=== PATIENT | male | born 1975 | race Caucasian/White ===

== ENCOUNTER 2016-04-10 21:19 | Inpatient (IN) | payer SELFPAY ==
--- NOTE | ~2016-04-10 | DS ---
Discharge Summary [place] [address] [facility] [place]. [address] NAME: EMANUEL US : 79 STATUS : DIS IN PAT#: [id number] AGE: 40 ADM/REG DATE : 04/10/16 MR#: [id number] REPORT SERV DATE: 04/13/16 DICTATED BY: ROHINI ALVAREZ DATE: 04/12/16 REPORT STATUS : Draft TRANSCRIBED BY: MODL DATE: 04/12/16 ADMISSION DATE: 04/10/2016 DISCHARGE DATE: 04/12/2016 CHIEF COMPLAINT: Abdominal pain. DISCHARGE DIAGNOSIS: Acute on chronic pancreatitis. HISTORY OF PRESENT ILLNESS: Please see full H and P by Dr. Riccardo Lugo for details regarding initial presentation. HOSPITAL COURSE: Acute on chronic pancreatitis. The patient was admitted to the hospital, treated with IV fluids aggressively as well as pain control. He is tolerating clear liquid diet. At this point, he wishes to go home, as he says he does not have insurance and does not wish to pay for another night in the hospital. We have counseled him on alcohol cessation. He should avoid this at all cost in addition to smoking cessation. FOLLOW UP: The patient will follow up as outpatient with GI doctor at [place]. Time spent on this discharge, less than 30 minutes. DANUTA/GINA Rohini Alvarez MD / [id number] CC: Rohini Alvarez MD
--- NOTE | ~2016-04-10 | HP ---
History And Physical [address] [place]. [address] NAME: EMANUEL US : 79 STATUS : ADM IN [facility]#: [id number] AGE: 40 ADM/REG DATE : 04/10/16 MR#: [id number] REPORT SERV DATE: 04/11/16 DICTATED BY: RICCARDO LUGO DATE: 04/10/16 REPORT STATUS : Draft TRANSCRIBED BY: MODL DATE: 04/10/16 DATE OF ADMISSION: 04/10/2016 CHIEF COMPLAINT: Abdominal pain. HISTORY OF PRESENT ILLNESS: This is a 40-year-old gentleman with history of alcoholism and chronic pancreatitis, presenting with an abdominal pain. The patient reports that with his chronic pancreatitis, he has abdominal pains chronically at baseline, but he had acute worsening of abdominal pain since this morning. The patient does have quite frequent flare- ups every couple of weeks or so and this episode was unusually worse. The patient thus came to the ER for further evaluation and care. In the ER, the patient was found to be afebrile and hemodynamically stable. Initial lab evaluation revealed benign electrolytes, LFTs, and CBC, but lipase was quite elevated at 8472. CT of the abdomen and pelvis also confirmed severe pancreatitis at the head as well as severe duodenitis. Internal Medicine consultation was thus requested for admission of the patient for further evaluation and care. The patient first developed acute pancreatitis about a year to year and a half ago and unfortunately, it progressed to chronic pancreatitis from there. The patient apparently has pancreatic cysts. The patient follows with Dr. Gonzalez at [facility] and he is currently on imaging surveillance. In terms of alcohol consumption, the patient has been an alcoholic in the past and although he reports that he has stopped drinking. When asked him when his last drink was, he reluctantly admitted that he had a few drinks on Friday which is just three days ago. REVIEW OF SYSTEMS: The patient denies any fevers or chills. Also, 14-point review of systems reviewed and negative other than mentioned above. MEDICATIONS: 1. Clonidine 0.1 mg p.o. b.i.d. 2. Lisinopril 30 mg p.o. at bedtime. 3. Centrum one tablet p.o. daily. 4. Vitamin B12 1500 mcg p.o. daily. 5. Vitamin B1 500 mg p.o. daily. ALLERGIES: NKDA. PAST MEDICAL HISTORY: 1. Chronic pancreatitis with apparent pseudocysts. The patient follows with Dr. Gonzalez at [facility]. 2. Hypertension. 3. Smoking. 4. Alcohol abuse and dependence with ongoing abuse. History And Physical [address] [address] NAME: EMANUEL US : 79 STATUS : ADM IN [facility]#: [id number] AGE: 40 ADM/REG DATE : 04/10/16 MR#: [id number] REPORT SERV DATE: 04/11/16 DICTATED BY: RICCARDO LUGO DATE: 04/10/16 REPORT STATUS : Draft TRANSCRIBED BY: GINA DATE: 04/10/16 PAST SURGICAL HISTORY: Negative. FAMILY HISTORY: 1. Hypertension. 2. Diabetes. SOCIAL HISTORY: The patient smokes about one pack per day of cigarettes on daily basis. The patient reports that he does not really drink anymore, but his last drink was Friday. The patient does not use any other illicit drugs. The patient lives at home with his . The patient is accompanied by his mother here in the ER. PHYSICAL EXAMINATION: VITAL SIGNS: Temperature 98.2, blood pressure 136/72, pulse 96, respiratory rate is 16, saturating 99% on room air. GENERAL: The patient is alert and oriented x3 with no focal neurologic deficits. The patient is awake, does not appear to be in acute distress and he is cooperative. NECK: No JVD. No lymphadenopathy. Normal thyroid. CHEST: No midline scar and no tenderness to palpation. LUNGS: Clear to auscultation bilaterally with normal respiratory effort on room air. CARDIOVASCULAR: Regular rate and rhythm with no murmurs, rubs, or gallops, and PMI is nondisplaced. ABDOMEN: Soft, nontender with active bowel sounds and no organomegaly. EXTREMITIES: No edema. Normal distal pulses and no calf tenderness. SKIN: Clean, dry, warm, and intact. LABORATORY DATA: Sodium is 140, potassium 4.1, chloride 101, BUN 5, creatinine 0.68, glucose 90, calcium 8.9. LFTs are benign. Lipase 8472. White blood cell count is 11.0, hemoglobin 17.2, platelets 271. CT of the abdomen and pelvis revealed a severe pancreatitis at the head along with severe duodenitis. ASSESSMENT: This is a 40-year-old gentleman with history of chronic pancreatitis, presenting with acute on chronic pancreatitis. 1. Acute on chronic pancreatitis. 2. Hypertension. 3. Smoking. 4. Continued alcohol abuse. PLAN: My plan is to admit the patient under telemetry monitoring. The patient will be kept n.p.o. and he will be given IV fluid resuscitation. The patient will also be given supportive care with antiemetics and analgesia. The patient was extensively counseled against continuing alcohol consumption. The patient was also given smoking cessation counseling. Otherwise, in's and out's will be closely monitored and I will also follow serial labs. Standard DVT prophylaxis. The patient is full code at this time. [facility] History And Physical [address] [address] NAME: EMANUEL US : 79 STATUS : ADM IN PAT#: [id number] AGE: 40 ADM/REG DATE : 04/10/16 MR#: [id number] REPORT SERV DATE: 04/11/16 DICTATED BY: RICCARDO LUGO DATE: 04/10/16 REPORT STATUS : Draft TRANSCRIBED BY: GINA DATE: 04/10/16 Riccardo Lugo MD / [id number] CC: Riccardo Lugo MD
[2016-04-10 20:45] LABS: BASOPHILS 0.2 %; BASOPHILS ABSOLUTE 0.02 10/3/uL (0.0-0.16); EOSINOPHILS 0.3 %; EOSINOPHILS ABSOLUTE 0.03 10/3/uL (0.0-0.53); ER CBC TAT 0 Hrs 14 Mins; HEMATOCRIT 48.5 % (40.0-51.0); HEMOGLOBIN 17.2 g/dL (13.6-17.8); IMMATURE GRANULOCYTES 0.2 %; IMMATURE GRANULOCYTES ABSOLUTE 0.02 10/3/uL (0.0-0.11); LYMPHOCYTES 11.5 %; LYMPHOCYTES ABSOLUTE 1.27 10/3/uL (0.67-4.30); MEAN CORPUS HGB CONC 35.5 g/dL (32.0-36.0); MEAN CORPUSCULAR HEMOGLOB 35.3 pg (26.0-34.0); MEAN CORPUSCULAR VOLUME 99.6 fL (80-100); MEAN PLATELET VOLUME 9.9 fL (9.2-13.0); MONOCYTES 7.1 %; MONOCYTES ABSOLUTE 0.78 10/3/uL (0.21-1.20); NEUTROPHILS 80.7 %; NEUTROPHILS ABSOLUTE 8.88 10/3/uL (2.02-8.40); PLATELET COUNT 271 10/3/uL (150-400); RBC DISTRIBUTION WIDTH 12.5 % (12.0-16.0); RED CELL COUNT 4.87 10/6/uL (4.7-6.1)
[2016-04-10 20:48] LABS: MANUAL DIFF NO %
[2016-04-10 20:51] LABS: A/G RATIO 0.6 (0.7-1.9); ALBUMIN 2.9 G/DL (3.5-5.0); ALKALINE PHOSPHATASE 90 U/L (45-117); BUN (BLOOD UREA NITROGEN) 5 MG/DL (6-23); CALCIUM, SERUM 8.9 MG/DL (8.5-10.4); CHLORIDE, SERUM 101 MMOL/L (96-112); CO2 (CARBON DIOXIDE) 24 MMOL/L (24-34); CREATININE 0.68 MG/DL (0.70-1.30); GFR AFRICAN AMERICAN 140 ML/MIN (>=60); GFR NON AFRICAN AMERICAN 121 ML/MIN (>=60); GLOBULIN 4.7 G/DL (2.5-4.1); GLUCOSE, SERUM 90 MG/DL (60-99); POTASSIUM, SERUM 4.1 MMOL/L (3.5-5.3); SGOT(AST) 24 U/L (5-40); SGPT(ALT) 17 U/L (5-65); SODIUM, SERUM 140 MMOL/L (135-148); TOTAL BILIRUBIN 0.4 MG/DL (0-1.2); TOTAL PROTEIN 7.6 G/DL (6.0-8.5)
[2016-04-10] MEDS ORDERED: ZESTRIL30 MG PO (21:20)
[2016-04-10] MEDS ORDERED: CAT1 PO (21:20)
[2016-04-10] MEDS ORDERED: CENTRUM PO (21:20)
[2016-04-10] MEDS ORDERED: VITAMIN B-1500 MG PO (21:21)
[2016-04-10] MEDS ORDERED: B12250T PO (21:21)
[2016-04-11 07:18] LABS: BASOPHILS 0.5 %; BASOPHILS ABSOLUTE 0.04 10/3/uL (0.0-0.16); EOSINOPHILS 1.8 %; EOSINOPHILS ABSOLUTE 0.15 10/3/uL (0.0-0.53); IMMATURE GRANULOCYTES 0.2 %; IMMATURE GRANULOCYTES ABSOLUTE 0.02 10/3/uL (0.0-0.11); LYMPHOCYTES 21.6 %; MEAN CORPUS HGB CONC 34.6 g/dL (32.0-36.0); MEAN CORPUSCULAR HEMOGLOB 34.4 pg (26.0-34.0); MEAN CORPUSCULAR VOLUME 99.2 fL (80-100); MEAN PLATELET VOLUME 9.6 fL (9.2-13.0); MONOCYTES 11.7 %; MONOCYTES ABSOLUTE 0.98 10/3/uL (0.21-1.20); NEUTROPHILS 64.2 %; NEUTROPHILS ABSOLUTE 5.36 10/3/uL (2.02-8.40); RBC DISTRIBUTION WIDTH 12.6 % (12.0-16.0); RED CELL COUNT 3.93 10/6/uL (4.7-6.1); WHITE BLOOD CELLS 8.4 10/3/uL (4.5-10.5)
[2016-04-11 07:19] LABS: HEMOGLOBIN 13.5 g/dL (13.6-17.8); MANUAL DIFF NO %; PLATELET COUNT 188 10/3/uL (150-400)
[2016-04-11 07:34] LABS: A/G RATIO 0.6 (0.7-1.9); ALBUMIN 2.4 G/DL (3.5-5.0); ALKALINE PHOSPHATASE 71 U/L (45-117); BUN (BLOOD UREA NITROGEN) 6 MG/DL (6-23); CALCIUM, SERUM 7.9 MG/DL (8.5-10.4); CHLORIDE, SERUM 102 MMOL/L (96-112); CO2 (CARBON DIOXIDE) 25 MMOL/L (24-34); CREATININE 0.64 MG/DL (0.70-1.30); GFR AFRICAN AMERICAN 144 ML/MIN (>=60); GFR NON AFRICAN AMERICAN 124 ML/MIN (>=60); GLUCOSE, SERUM 81 MG/DL (60-99); POTASSIUM, SERUM 3.5 MMOL/L (3.5-5.3); SGOT(AST) 19 U/L (5-40); SGPT(ALT) 15 U/L (5-65); SODIUM, SERUM 138 MMOL/L (135-148); TOTAL BILIRUBIN 0.7 MG/DL (0-1.2); TOTAL PROTEIN 6.4 G/DL (6.0-8.5)
[2016-04-12] MEDS ORDERED: NORCO1 TA1 PO (15:12)
== END 2016-04-12 15:30 | disposition home or self-care (01) | DRG 440 ==
LOC: ER 21:19 → ER/OF 22:50 → 4EA 04-11 01:09
PROVIDERS: Hospitalist; Internal Medicine
DX: K85.90 Acute pancreatitis without necrosis or infection, unspecified (principal); I10 Essential (primary) hypertension; F17.210 Nicotine dependence, cigarettes, uncomplicated; F10.10 Alcohol abuse, uncomplicated
CPT/HCPCS: 74176; 80053; 83690; 85025; 96374; 99285; A9270-GY; C9113; J1170; J2405; J3411

== ENCOUNTER 2016-04-26 18:16 | Inpatient (IN) | payer SELFPAY ==
--- NOTE | ~2016-04-26 | DS ---
Discharge Summary [address] [place]. [address] NAME: EMANUEL US : 79 STATUS : DIS IN PAT#: [id number] AGE: 40 ADM/REG DATE : 04/26/16 MR#: [id number] REPORT SERV DATE: 04/29/16 DICTATED BY: RICCARDO PICHARDO DATE: 04/29/16 REPORT STATUS : Draft TRANSCRIBED BY: MODL DATE: 04/29/16 ADMISSION DATE: 04/26/2016 DISCHARGE DATE: 04/29/2016 DISCHARGE DIAGNOSES: 1. Acute on chronic pancreatitis. 2. Leukocytosis. 3. Alcohol abuse and dependence. 4. Smoking. 5. Hypertension. CONSULTS: None. PROCEDURES: None. HOSPITAL COURSE: This is a 40-year-old gentleman with history of alcohol abuse and dependence who has had an acute pancreatitis episodes earlier this month who was admitted again with a second episode of acute on chronic pancreatitis. For details, please refer to H and P by Dr. Umanzor. In summary, the patient was admitted and was treated supportively with generous IV fluid hydration and pain control as well as nausea control. By the second day of the hospital stay, the patient was able to slowly start tolerating clear liquid diet. The patient was able to tolerate a soft diet today, and thus, he is being discharged home with close outpatient followup instructions. The patient does follow with Dr. Gonzalez at [facility], and thus, he was encouraged to continue to follow with him. He has an appointment with him in the next two weeks. Otherwise, the patient had rather uncomplicated hospital stay. Also, for alcohol abuse and dependence as well as smoking, the patient was given lengthy and extensive counseling to encourage cessation. DISCHARGE MEDICATIONS: Three day course of Percocet otherwise no changes. DISPOSITION: Home. FOLLOWUP: Please follow up with Dr. Gonzalez at [facility] as already scheduled. A total of 25 minutes spent in coordinating this patient's discharge today. JEROD/GINA Riccardo Pichardo MD / [id number] CC: Discharge Summary [address] [place] [place]. [address] NAME: EMANUEL US : 79 STATUS : DIS IN PAT#: [id number] AGE: 40 ADM/REG DATE : 04/26/16 MR#: [id number] REPORT SERV DATE: 04/29/16 DICTATED BY: RICCARDO PICHARDO DATE: 04/29/16 REPORT STATUS : Draft TRANSCRIBED BY: MODL DATE: 04/29/16 Riccardo Pichardo MD
--- NOTE | ~2016-04-26 | HP ---
History And Physical [address] [place]. [address] NAME: EMANUEL US : 79 STATUS : ADM IN [facility]#: [id number] AGE: 40 ADM/REG DATE : 04/26/16 MR#: [id number] REPORT SERV DATE: 04/27/16 DICTATED BY: JACQUIE KATE DATE: 04/27/16 REPORT STATUS : Draft TRANSCRIBED BY: MODL DATE: 04/27/16 DATE OF ADMISSION: 04/26/2016 CHIEF COMPLAINT: A 40-year-old male with no primary care physician, now presenting with abdominal pain and evidence of acute on chronic pancreatitis. HISTORY OF PRESENT ILLNESS: The patient's history was obtained through careful interview with the patient and coupled with review of [facility] medical records. The patient states that just on the morning of admission, he began to have increasing pain reminiscent of previous pancreatitis exacerbations. He has vomited throughout the day. He describes right upper quadrant abdominal pain that radiates to the epigastric area, a "solid" and sometimes sharp quality pain, 8/10 in severity that is unremitting. His describes "crackle and pops" and loud sounds of the abdomen. A particular complaint today has been diaphoresis and severe sweating, rigors, and chills but no measured fevers. No lightheadedness. No diarrhea. No shortness of breath. No chest pain. REVIEW OF SYSTEMS: Otherwise, a 14-point review of systems was obtained and was negative. PAST MEDICAL HISTORY: 1. Pancreatitis previously induced from alcohol consumption. 2. Diabetes. 3. Hypertension. PAST SURGICAL HISTORY: Left arm fracture repair. ALLERGIES: NO KNOWN DRUG ALLERGIES. SOCIAL HISTORY: Has been a heavy alcoholic but states he has been abstinent for three weeks and his confirms this. There is a history of smoking. The patient's urine drug screen is positive for methamphetamines. He is , has two children, lives in [place], [place]. FAMILY HISTORY: Diabetes. CURRENT MEDICATIONS: Include ibuprofen p.r.n., vitamin B12, lisinopril 30 mg p.o. daily, Prilosec 20 mg p.o. daily, and vitamin B1. PHYSICAL EXAMINATION: VITAL SIGNS: Temperature 98.7, pulse 82, blood pressure 150/109, respiratory rate 15, O2 History And Physical [address] [place]. [address] NAME: EMANUEL US : 79 STATUS : ADM IN [facility]#: [id number] AGE: 40 ADM/REG DATE : 04/26/16 MR#: [id number] REPORT SERV DATE: 04/27/16 DICTATED BY: JACQUIE KATE DATE: 04/27/16 REPORT STATUS : Draft TRANSCRIBED BY: MODL DATE: 04/27/16 saturation 99% on room air. GENERAL: An ill-appearing male with evidence of describes distress secondary to abdominal pain and vomiting. HEENT: Pupils are equal, round, and reactive to light. No conjunctival pallor. No scleral icterus. Nares are patent. Oropharynx is clear of obstruction. Moist mucous membranes. NECK: Trachea midline. No thyromegaly. LYMPHS: No cervical lymphadenopathy. No supraclavicular lymphadenopathy. RESPIRATORY: Clear to auscultation in the bases. No wheezes, rales, or rhonchi. Normal respiratory effort. CARDIOVASCULAR: Regular rate and rhythm. No murmurs, rubs, or gallops. No extremity edema is appreciated. ABDOMEN: Diffusely tender by exam, nonfocal, except for what seems to be increasing right upper quadrant discomfort and guarding in that area. Nondistended. No hepatosplenomegaly. DERMATOLOGICAL: Warm and dry extremities. No pallor. No cyanosis. PSYCHIATRIC: Normal affect. Good mood. Alert and oriented x3. LABORATORY DATA: White blood count 14.6, hemoglobin 16, hematocrit 46, MCV 101.8, platelets 214, sodium 140, potassium 4.1, chloride 104, bicarb 24, BUN 5, creatinine 0.65, glucose 94, and lipase 736. Liver enzymes are within normal limits. INR 1.0. Alcohol level negative. Urine drug screen positive for amphetamines and opiates. STUDIES: 1. CT scan of the abdomen was reported as showing acute on chronic pancreatitis. 2. EKG, by my own evaluation, shows sinus rhythm, no major abnormalities. ASSESSMENT AND PLAN: 1. Acute on chronic pancreatitis, place on IV narcotic pain management and IV fluids. Hold Advil. Hold lisinopril. Previously induced by alcohol but has been abstinent for about three weeks now, possibly induced by methamphetamine use? Check ultrasound of the gallbladder as pain is really localizing to the right upper quadrant. 2. Leukocytosis with rigors. I would like to cover with Levaquin and Flagyl at least overnight and re-evaluate. Check procalcitonin. KPL/MODL Jacquie Kate M.D. / [id number] CC: Riccardo Lugo MD
[~2016-04-26 18:16] MED LIST: B12250T PO; CAT1 PO; CENTRUM PO; NORCO1 TA1 PO; VITAMIN B-1500 MG PO; ZESTRIL30 MG PO
[2016-04-26 19:20] LABS: BASOPHILS 0.2 %; BASOPHILS ABSOLUTE 0.03 10/3/uL (0.0-0.16); EOSINOPHILS 0.1 %; EOSINOPHILS ABSOLUTE 0.02 10/3/uL (0.0-0.53); IMMATURE GRANULOCYTES 0.3 %; IMMATURE GRANULOCYTES ABSOLUTE 0.04 10/3/uL (0.0-0.11); LYMPHOCYTES 10.1 %; LYMPHOCYTES ABSOLUTE 1.47 10/3/uL (0.67-4.30); MEAN CORPUS HGB CONC 35.7 g/dL (32.0-36.0); MEAN CORPUSCULAR HEMOGLOB 36.4 pg (26.0-34.0); MEAN CORPUSCULAR VOLUME 101.8 fL (80-100); MONOCYTES 8.8 %; MONOCYTES ABSOLUTE 1.28 10/3/uL (0.21-1.20); NEUTROPHILS 80.5 %; NEUTROPHILS ABSOLUTE 11.75 10/3/uL (2.02-8.40); PLATELET COUNT 214 10/3/uL (150-400); RBC DISTRIBUTION WIDTH 12.7 % (12.0-16.0); RED CELL COUNT 4.48 10/6/uL (4.7-6.1)
[2016-04-26 19:22] LABS: ER CBC TAT 0 Hrs 12 Mins; HEMATOCRIT 45.6 % (40.0-51.0); HEMOGLOBIN 16.3 g/dL (13.6-17.8); MANUAL DIFF NO %; WHITE BLOOD CELLS 14.6 10/3/uL (4.5-10.5)
[2016-04-26 19:25] LABS: PARTIAL THROMBO TIME 28.7 SEC (22.5-37.2)
[2016-04-26 19:42] LABS: ALBUMIN 2.8 G/DL (3.5-5.0); BUN (BLOOD UREA NITROGEN) 5 MG/DL (6-23); CALCIUM, SERUM 8.6 MG/DL (8.5-10.4); CHLORIDE, SERUM 104 MMOL/L (96-112); CO2 (CARBON DIOXIDE) 24 MMOL/L (24-34); CREATININE 0.65 MG/DL (0.70-1.30); DIRECT BILIRUBIN 0.1 MG/DL (0.0-0.4); GFR AFRICAN AMERICAN 143 ML/MIN (>=60); GFR NON AFRICAN AMERICAN 123 ML/MIN (>=60); GLUCOSE, SERUM 94 MG/DL (60-99); INDIRECT BILIRUBIN(NOT ORDER) 0.3 MG/DL (0.1-0.9); POTASSIUM, SERUM 4.1 MMOL/L (3.5-5.3); SGOT(AST) 35 U/L (5-40); SGPT(ALT) 19 U/L (5-65); SODIUM, SERUM 140 MMOL/L (135-148); TOTAL BILIRUBIN 0.4 MG/DL (0-1.2); TOTAL PROTEIN 7.5 G/DL (6.0-8.5); TROPONIN I <0.02 NG/ML (<0.05)
[2016-04-26 19:43] LABS: ACETAMINOPHEN LEVEL (TYLENOL) < 2.0 MCG/ML (10.0-20.0); ALCOHOL < 10 MG/DL (0); ALKALINE PHOSPHATASE 92 U/L (45-117); CHEST PAIN PROFILE TAT 0 Hrs 32 Mins; SALICYLATE < 1.7 MG/DL (-)
[2016-04-26 19:48] LABS: BARBITURATES (NOT ORDERED NEG (NEG); BENZODIAZEPINES (NOT ORD) NEG (NEG); CANNABINOIDS (THC) NEG (NEG); COCAINE (NOT ORDERED) NEG (NEG); PHENCYCLIDINE(PCP) NEG (NEG); TRICYCLICS NEG (NEG)
[2016-04-26 20:09] LABS: AMPHETAMINES (NOT ORD) POS (NEG); OPIATES POS (NEG)
[2016-04-26] MEDS ORDERED: ADVIL PO (23:02)
[2016-04-26] MEDS ORDERED: PRILO PO (23:02)
[2016-04-27 08:30] LABS: BASOPHILS 0.2 %; BASOPHILS ABSOLUTE 0.02 10/3/uL (0.0-0.16); EOSINOPHILS 0 %; HEMATOCRIT 44.5 % (40.0-51.0); HEMOGLOBIN 15.6 g/dL (13.6-17.8); IMMATURE GRANULOCYTES 0.2 %; IMMATURE GRANULOCYTES ABSOLUTE 0.03 10/3/uL (0.0-0.11); LYMPHOCYTES 13.6 %; LYMPHOCYTES ABSOLUTE 1.65 10/3/uL (0.67-4.30); MEAN CORPUS HGB CONC 35.1 g/dL (32.0-36.0); MEAN CORPUSCULAR HEMOGLOB 35.9 pg (26.0-34.0); MEAN CORPUSCULAR VOLUME 102.3 fL (80-100); MEAN PLATELET VOLUME 10.4 fL (9.2-13.0); MONOCYTES 12.1 %; MONOCYTES ABSOLUTE 1.47 10/3/uL (0.21-1.20); NEUTROPHILS 73.9 %; NEUTROPHILS ABSOLUTE 8.94 10/3/uL (2.02-8.40); PLATELET COUNT 207 10/3/uL (150-400); RBC DISTRIBUTION WIDTH 12.7 % (12.0-16.0); RED CELL COUNT 4.35 10/6/uL (4.7-6.1); WHITE BLOOD CELLS 12.1 10/3/uL (4.5-10.5)
[2016-04-27 08:31] LABS: MANUAL DIFF NO %
[2016-04-27 08:38] LABS: PARTIAL THROMBO TIME 29.3 SEC (22.5-37.2); PROTIME (NOT ORD) 13.1 SEC (12.0-14.5)
[2016-04-27 08:57] LABS: A/G RATIO 0.6 (0.7-1.9); ALBUMIN 2.6 G/DL (3.5-5.0); ALKALINE PHOSPHATASE 85 U/L (45-117); BUN (BLOOD UREA NITROGEN) 6 MG/DL (6-23); CALCIUM, SERUM 8.5 MG/DL (8.5-10.4); CHLORIDE, SERUM 104 MMOL/L (96-112); CO2 (CARBON DIOXIDE) 27 MMOL/L (24-34); CREATININE 0.75 MG/DL (0.70-1.30); GFR AFRICAN AMERICAN 135 ML/MIN (>=60); GFR NON AFRICAN AMERICAN 116 ML/MIN (>=60); GLOBULIN 4.5 G/DL (2.5-4.1); GLUCOSE, SERUM 104 MG/DL (60-99); POTASSIUM, SERUM 4.8 MMOL/L (3.5-5.3); SGOT(AST) 23 U/L (5-40); SGPT(ALT) 15 U/L (5-65); SODIUM, SERUM 141 MMOL/L (135-148); TOTAL BILIRUBIN 0.6 MG/DL (0-1.2); TOTAL PROTEIN 7.1 G/DL (6.0-8.5)
[2016-04-27 09:25] LABS: PROCALCITONIN <0.05 ng/mL (<0.5)
[2016-04-29 06:50] LABS: BASOPHILS 0.1 %; BASOPHILS ABSOLUTE 0.01 10/3/uL (0.0-0.16); EOSINOPHILS 0.7 %; EOSINOPHILS ABSOLUTE 0.07 10/3/uL (0.0-0.53); HEMOGLOBIN 13.5 g/dL (13.6-17.8); IMMATURE GRANULOCYTES 0.3 %; IMMATURE GRANULOCYTES ABSOLUTE 0.03 10/3/uL (0.0-0.11); LYMPHOCYTES 16.1 %; LYMPHOCYTES ABSOLUTE 1.64 10/3/uL (0.67-4.30); MEAN CORPUS HGB CONC 35.2 g/dL (32.0-36.0); MEAN CORPUSCULAR HEMOGLOB 36.1 pg (26.0-34.0); MEAN CORPUSCULAR VOLUME 102.4 fL (80-100); MEAN PLATELET VOLUME 10.4 fL (9.2-13.0); MONOCYTES 13.1 %; MONOCYTES ABSOLUTE 1.34 10/3/uL (0.21-1.20); NEUTROPHILS 69.7 %; NEUTROPHILS ABSOLUTE 7.11 10/3/uL (2.02-8.40); PLATELET COUNT 168 10/3/uL (150-400); RBC DISTRIBUTION WIDTH 12.1 % (12.0-16.0); RED CELL COUNT 3.74 10/6/uL (4.7-6.1); WHITE BLOOD CELLS 10.2 10/3/uL (4.5-10.5)
[2016-04-29 06:52] LABS: HEMATOCRIT 38.3 % (40.0-51.0); MANUAL DIFF NO %
[2016-04-29 06:59] LABS: BUN (BLOOD UREA NITROGEN) 4 MG/DL (6-23); CALCIUM, SERUM 7.9 MG/DL (8.5-10.4); CHLORIDE, SERUM 104 MMOL/L (96-112); CO2 (CARBON DIOXIDE) 26 MMOL/L (24-34); CREATININE 0.53 MG/DL (0.70-1.30); GFR AFRICAN AMERICAN 156 ML/MIN (>=60); GFR NON AFRICAN AMERICAN 134 ML/MIN (>=60); GLUCOSE, SERUM 84 MG/DL (60-99); POTASSIUM, SERUM 3.5 MMOL/L (3.5-5.3); SODIUM, SERUM 138 MMOL/L (135-148)
[2016-04-29] MEDS ORDERED: PCET PO (12:39)
== END 2016-04-29 13:14 | disposition home or self-care (01) | DRG 440 ==
LOC: ER 18:16 → 4SO 23:23
PROVIDERS: Emergency Medicine; Hospitalist; Internal Medicine
DX: K85.90 Acute pancreatitis without necrosis or infection, unspecified (principal); I10 Essential (primary) hypertension; K86.1 Other chronic pancreatitis; E11.9 Type 2 diabetes mellitus without complications; F10.21 Alcohol dependence, in remission; F17.210 Nicotine dependence, cigarettes, uncomplicated; F15.10 Other stimulant abuse, uncomplicated; F10.20 Alcohol dependence, uncomplicated
CPT/HCPCS: 74022; 74176; 76705; 80048; 80053; 80076; 80305; 80307; 82150; 82962; 83690; 83735; 84145; 84443; 84484; 85025; 85610; 85730; 93005; 99285; A9270-GY; J1170; J1956; J2405; J2800

== ENCOUNTER 2016-05-17 19:34 | Emergency (ER) | payer SELFPAY ==
[~2016-05-17 19:34] MED LIST changes: +ADVIL PO; +PCET PO; +PRILO PO
[2016-05-17 19:50] LABS: BASOPHILS 0.1 %; BASOPHILS ABSOLUTE 0.02 10/3/uL (0.0-0.16); EOSINOPHILS 0.2 %; EOSINOPHILS ABSOLUTE 0.03 10/3/uL (0.0-0.53); IMMATURE GRANULOCYTES 0.4 %; IMMATURE GRANULOCYTES ABSOLUTE 0.06 10/3/uL (0.0-0.11); LYMPHOCYTES 9.8 %; MEAN CORPUS HGB CONC 35.7 g/dL (32.0-36.0); MEAN CORPUSCULAR HEMOGLOB 36.6 pg (26.0-34.0); MEAN CORPUSCULAR VOLUME 102.6 fL (80-100); MEAN PLATELET VOLUME 10.1 fL (9.2-13.0); MONOCYTES 8.1 %; MONOCYTES ABSOLUTE 1.24 10/3/uL (0.21-1.20); NEUTROPHILS 81.4 %; NEUTROPHILS ABSOLUTE 12.48 10/3/uL (2.02-8.40); RBC DISTRIBUTION WIDTH 12.3 % (12.0-16.0)
[2016-05-17 19:52] LABS: ER CBC TAT 0 Hrs 08 Mins; HEMATOCRIT 48.2 % (40.0-51.0); HEMOGLOBIN 17.2 g/dL (13.6-17.8); MANUAL DIFF NO %; PLATELET COUNT 273 10/3/uL (150-400); WHITE BLOOD CELLS 15.3 10/3/uL (4.5-10.5)
[2016-05-17 20:04] LABS: A/G RATIO 0.6 (0.7-1.9); ALBUMIN 3.2 G/DL (3.5-5.0); ALKALINE PHOSPHATASE 96 U/L (45-117); BUN (BLOOD UREA NITROGEN) 6 MG/DL (6-23); CALCIUM, SERUM 8.9 MG/DL (8.5-10.4); CHLORIDE, SERUM 100 MMOL/L (96-112); CO2 (CARBON DIOXIDE) 29 MMOL/L (24-34); CREATININE 0.86 MG/DL (0.70-1.30); GFR AFRICAN AMERICAN 127 ML/MIN (>=60); GFR NON AFRICAN AMERICAN 110 ML/MIN (>=60); GLUCOSE, SERUM 96 MG/DL (60-99); POTASSIUM, SERUM 4.3 MMOL/L (3.5-5.3); SGOT(AST) 20 U/L (5-40); SGPT(ALT) 13 U/L (5-65); SODIUM, SERUM 141 MMOL/L (135-148); TOTAL BILIRUBIN 0.6 MG/DL (0-1.2); TOTAL PROTEIN 8.2 G/DL (6.0-8.5)
== END 2016-05-17 22:58 | disposition home or self-care (01) ==
LOC: ER 19:34
PROVIDERS: Physician Assistant
DX: K85.90 Acute pancreatitis without necrosis or infection, unspecified (principal); D72.829 Elevated white blood cell count, unspecified; I10 Essential (primary) hypertension; E11.9 Type 2 diabetes mellitus without complications; F17.200 Nicotine dependence, unspecified, uncomplicated; Z79.899 Other long term (current) drug therapy
CPT/HCPCS: 74176; 80053; 81001; 83690; 85025; 96374; 96375; 96376; 99284; A9270-GY; J2405

== ENCOUNTER 2016-06-12 03:04 | Inpatient (IN) | payer SELFPAY ==
--- NOTE | ~2016-06-12 | DS ---
Discharge Summary [facility] [address] [place]. [address] NAME: EMANUEL US : 79 STATUS : DIS IN PAT#: [id number] AGE: 40 ADM/REG DATE : 06/12/16 MR#: [id number] REPORT SERV DATE: 06/14/16 DICTATED BY: ANGY CAAL DATE: 06/13/16 REPORT STATUS : Draft TRANSCRIBED BY: MODL DATE: 06/13/16 ADMISSION DATE: 06/12/2016 DISCHARGE DATE: 06/13/2016 HOSPITAL COURSE: This is a 40-year-old male with known history of alcoholism, chronic pancreatitis, takes pancreatic enzyme replacement therapy as well as a history of hypertension, on clonidine, possibly is on clonidine for also withdrawal issues as well as having a known history of hyperutilization and multiple admissions for acute on chronic pancreatitis, chronic pain, and smoking history. The patient came in with "stated abstinence." However, his alcohol level was 0.144, had a lipasemia of 3061, and amylase of 159. Apparently was in an out of [facility] recently, did multiple CTs on him and stated that the patient had not drank to the admitting doctor, but with his blood alcohol level being high, the patient stated that he may have had a drink slipped to him, then a day later he told me that in truth he had an alcoholic drink, 32 ounce, 3 days prior to admission. Does not know how it could be allowing his blood alcohol level to be persistently elevated at 0.144. The patient was placed on high IV fluid rate and has done clinically much better. His lipasemia has resolved, it is now 384 from 3061. Hepatitis serologies were negative. He is just positive for opiates in his urine drug screen, likely etiology of acute on chronic alcoholic pancreatitis is alcohol again. I had a samara discussion with the patient at least 2 times. The patient states he is not going to drink alcohol, he promises, knowing the risk of possible with Librium and Ativan if he drinks again. As a result, we will try to have the patient follow up with psychiatrist and possible [facility] or AA and will have to take the patient at his word as he tells me he will not drink alcohol, will have a short duration of Librium and Ativan to reduce his risk of recidivation, and if in deed he does recidivate, as a result, the patient wants to go home, he does not want any further CT imaging. He has had CTs at [facility], does not want any further workup or stay in the hospital, just wants go home. DISCHARGE MEDICATIONS: Librium 10 p.o. t.i.d. for two days, then Librium 10 p.o. b.i.d. for two days, then Librium 5 mg p.o. b.i.d. for two days and stop Librium. Do Ativan 1 mg p.o. q.4 h. p.r.n. alcohol withdrawal, nicotine transdermal patch 14 mg patch daily, clonidine 0.1 p.o. b.i.d., we would titrate that down. Wean that off as an outpatient. Zofran 4 p.o. q.4 h. p.r.n., hydrocodone 5 p.o. q.4 h. p.r.n., would not use any Tylenol given his risks of alcoholism. Follow Psychiatry in less than 3 weeks for addiction. Discharge to home if he tolerates full liquids. manager decision support for alcohol rehab program option AA, etc., as outpatient for followup less than one week. Follow up PCP less than two weeks. Advance diet to full liquids if tolerates discharge. Would also give this patient a multivitamin one tablet p.o. daily, to get over the counter. CONSULTS: None. PROCEDURES: None. DISCHARGE DIAGNOSES: Acute on chronic alcoholic pancreatitis due to alcoholic recidivation. The patient promises he will not drink again. We will have him follow up with AA versus Discharge Summary [address] [place]. [address] NAME: EMANUEL US : 79 STATUS : DIS IN PAT#: [id number] AGE: 40 ADM/REG DATE : 06/12/16 MR#: [id number] REPORT SERV DATE: 06/14/16 DICTATED BY: ANGY CAAL DATE: 06/13/16 REPORT STATUS : Draft TRANSCRIBED BY: MODL DATE: 06/13/16 [facility] and Psychiatry to ensure that occurs. Hypertension and chronic pancreatitis. All questions were answered, it took well over 30 minutes to do. WST/MODL Angy Caal DO / [id number] CC: Angy Caal DO UNKNOWN
--- NOTE | ~2016-06-12 | HP ---
History And Physical [id number] [place]. [address] NAME: EMANUEL HILTON : 79 STATUS : ADM IN PAT#: [id number] AGE: 40 ADM/REG DATE : 06/12/16 MR#: [id number] REPORT SERV DATE: 06/12/16 DICTATED BY: ANAYELI CONTRERAS DATE: 06/12/16 REPORT STATUS : Draft TRANSCRIBED BY: MODL DATE: 06/12/16 DATE OF ADMISSION: 06/12/2016 POINT OF ENTRY: [facility] Emergency Department. PRIMARY CARE PHYSICIAN: Verónica Nicolas of [facility]. PRIMARY TOBACCO DRYING MACHINE OPERATOR: Dr. Gonzalez of [facility]. CHIEF COMPLAINT: Abdominal pain, nausea, vomiting. HISTORY OF PRESENT ILLNESS: Mr. Hilton is a 40-year-old, gentleman with history of alcoholism as well as chronic pancreatitis who presents to the emergency room today with report of acute onset of diffuse abdominal pain with associated nausea and vomiting. The patient has been admitted twice to our Hospitalist Service in April for acute on chronic pancreatitis. At that time, he did admit to our admitting physicians that he has had occasional drinks of alcohol despite stating that he has been abstinent. The patient states that since being admitted to our service in late April he has since been admitted to [facility] as recently as last week for continued issues with acute on chronic pancreatitis. The patient states he has received extensive evaluation and workup by patient's primary solution architect, Dr. Gonzalez including MRI of the abdomen. Beginning at approximately 0900 hours Friday, he started to develop right lower quadrant abdominal pain with radiation to the back as well as epigastrium, described as sharp and stabbing in nature with associated nausea and vomiting. The patient absolutely denies any alcohol intake for the past year or two. When confronted with his previous statements to other admitting physicians, he does admit that he did have a few drinks of alcohol prior to his first admission in April but has not had any alcohol since then and adamantly denies any alcohol intake in the last day or two. Initial evaluation in the emergency department notable for vital signs for tachycardia with rates in the 120s to 130s. Lipase is elevated at 3061. Amylase is elevated at 159. Remainder of his labs otherwise unremarkable. Urine drug screen is positive for opiates. Alcohol level was positive with level of 144. The patient was started on IV fluids, antiemetics, and pain control and then admitted to the Hospitalist Service. REVIEW OF SYSTEMS: Comprehensive review of system otherwise negative unless listed in history of present illness. PREVIOUS MEDICAL HISTORY: 1. Chronic pancreatitis with multiple admissions for acute on chronic pancreatitis. 2. Chronic alcoholism with stated abstinence. History And Physical [address] [address] NAME: EMANUEL HILTON : 79 STATUS : ADM IN PAT#: [id number] AGE: 40 ADM/REG DATE : 06/12/16 MR#: [id number] REPORT SERV DATE: 06/12/16 DICTATED BY: ANAYELI CONTRERAS DATE: 06/12/16 REPORT STATUS : Draft TRANSCRIBED BY: GINA DATE: 06/12/16 3. Hypertension. SURGICAL HISTORY: Left forearm open reduction and internal fixation. ALLERGIES: NO KNOWN DRUG ALLERGIES. HOME MEDICATIONS: 1. Clonidine 0.1 mg daily. 2. Endocet 7.5/325 one tab q.4 hours p.r.n. 3. Phenergan 25 mg frequency unknown. 4. Pancreatic enzymes [id number] t.i.d. with meals. 5. Liverite 2 tabs t.i.d. with meals. SOCIAL HISTORY: He smokes about a half pack per day. Alcohol, denies any alcohol intake despite being confronted with his alcohol level here. Denies illicit's. FAMILY MEDICAL HISTORY: Mother is healthy. Father with hypertension. He is an only child. LABS AND IMAGIN. White count 9.3, hemoglobin 17.4, hematocrit 49.4, and platelet count 333. 2. Sodium is 143, potassium 3.7, chloride 107, carbon dioxide 25, BUN 4, creatinine 0.74, glucose is 106, calcium is 8.9, protein is 7.9, albumin is 3.2, bilirubin is 0.1, ALT is 15, AST 28, alkaline phosphatase is 82. 3. Lactic acid is 1.9. 4. Alcohol level is 144. 5. Urinalysis: Spec gravity is 1.013, hazy with no evidence of any infection. Urine drug screen is positive for opiates. 6. Amylase 159, lipase is 3061. PHYSICAL EXAMINATION: VITAL SIGNS: Temperature 98.2 degrees Fahrenheit, pulse is 133, respirations 18, saturating 92% on room air, blood pressure 149/107. On recheck, heart rate is now 115, blood pressure 150/109. GENERAL: The patient is awake, alert, in no acute distress. Resting comfortably in bed. He is a disheveled-appearing gentleman who does smell of alcohol and tobacco smoke. HEENT: Atraumatic and normocephalic. Moist mucous membranes. Pupils are equal, round, reactive to light and accommodation. Extraocular movements intact. No scleral icterus. Does have some conjunctival injection and watery eyes. NECK: No jugular venous distention. No carotid bruits. CARDIAC: Regular rate and rhythm. No murmurs or gallops. Normal S1, S2. LUNGS: Clear to auscultation bilaterally. No wheezes, rhonchi, or crackles. ABDOMEN: Soft. Diffusely tender to palpation, but no rebound, guarding, rigidity. Hypoactive bowel sounds throughout. EXTREMITIES: Warm, perfused. No cyanosis, clubbing, or edema. SKIN: Warm and dry. PSYCH: Affect appropriate. History And Physical [address] [address] NAME: EMANUEL HILTON : 79 STATUS : ADM IN [facility]#: [id number] AGE: 40 ADM/REG DATE : 06/12/16 MR#: [id number] REPORT SERV DATE: 06/12/16 DICTATED BY: ANAYELI CONTRERAS DATE: 06/12/16 REPORT STATUS : Draft TRANSCRIBED BY: GINA DATE: 06/12/16 NEURO: Alert and oriented x3. Cranial nerves 2 through 12 grossly intact. Speech is normal. Gait not assessed. ASSESSMENT AND PLAN: Mr. Hilton is a 40-year-old gentleman with history of chronic pancreatitis secondary to alcohol abuse who presents again with acute onset of abdominal pain, nausea, vomiting, concern for acute on chronic pancreatitis, and also found to have alcohol level of 144 concerning for continued alcohol abuse as well as alcohol intoxication. PROBLEM LIST: 1. Acute on chronic pancreatitis. 2. Alcohol abuse. 3. Hypertension. 4. Tobacco abuse. PLAN: 1. Acute on chronic pancreatitis, provide supportive care with IV fluids, antiemetics, and pain control. I will hold off on further imaging at this time as he received three CT scans of the abdomen and pelvis here in the last few months. He also was at [facility] recently. So therefore, we will try to obtain records from [facility]. 2. Alcohol abuse. The patient adamantly denies any recent alcohol intake and states alcohol abstinence. However, he smells of alcohol. We will place him on alcohol withdrawal protocol as well as IV multivitamin, folate, and thiamine as well as IV fluids. Counseled the need for abstinence and cessation. 3. Hypertension. Continue patient's home medications. IV hydralazine p.r.n. for elevated blood pressure. 4. Active tobacco abuse. Nicotine replacement protocol. 5. Deep venous thrombosis prophylaxis. Lovenox subcu. 6. Code status. The patient wished to be full code. SHIVANIB/MODL Anayeli Contreras MD / [id number]
[2016-06-12 03:31] LABS: BASOPHILS 0.8 %; BASOPHILS ABSOLUTE 0.07 10/3/uL (0.0-0.16); EOSINOPHILS 1.5 %; EOSINOPHILS ABSOLUTE 0.14 10/3/uL (0.0-0.53); HEMATOCRIT 49.4 % (40.0-51.0); HEMOGLOBIN 17.4 g/dL (13.6-17.8); IMMATURE GRANULOCYTES 0.4 %; IMMATURE GRANULOCYTES ABSOLUTE 0.04 10/3/uL (0.0-0.11); LYMPHOCYTES 20.5 %; LYMPHOCYTES ABSOLUTE 1.91 10/3/uL (0.67-4.30); MEAN CORPUS HGB CONC 35.2 g/dL (32.0-36.0); MEAN CORPUSCULAR HEMOGLOB 35.4 pg (26.0-34.0); MEAN CORPUSCULAR VOLUME 100.4 fL (80-100); MEAN PLATELET VOLUME 9.6 fL (9.2-13.0); NEUTROPHILS 62.8 %; NEUTROPHILS ABSOLUTE 5.85 10/3/uL (2.02-8.40); PLATELET COUNT 333 10/3/uL (150-400); RBC DISTRIBUTION WIDTH 11.8 % (12.0-16.0); RED CELL COUNT 4.92 10/6/uL (4.7-6.1); WHITE BLOOD CELLS 9.3 10/3/uL (4.5-10.5)
[2016-06-12 03:33] LABS: ER CBC TAT 0 Hrs 05 MinsNP; MANUAL DIFF NO %
[2016-06-12 03:42] LABS: AMPHETAMINES (NOT ORD) NEG (NEG); BARBITURATES (NOT ORDERED NEG (NEG); BENZODIAZEPINES (NOT ORD) NEG (NEG); CANNABINOIDS (THC) NEG (NEG); COCAINE (NOT ORDERED) NEG (NEG); OPIATES POS (NEG); PHENCYCLIDINE(PCP) NEG (NEG); TRICYCLICS NEG (NEG)
[2016-06-12 03:47] LABS: ACETAMINOPHEN LEVEL (TYLENOL) < 2.0 MCG/ML (10.0-20.0); ALCOHOL 144 MG/DL (0); SALICYLATE 1.7 MG/DL (-)
[2016-06-12 03:48] LABS: ASCORBIC ACID (UR NOT ORDER) NEG (NEG); BILIRUBIN, URINE NEGATIVE (NEG); ER URINALYSIS TAT 0 Hrs 00 Mins; KETONE, URINE NEGATIVE (NEG); LEUKOCYTE ESTERASE(NOT OR NEG (NEG); NITRITE (URINE) NEG (NEG); WBC (NOT ORDERED) (RFLEX) 1 (0-5)
[2016-06-12 03:49] LABS: A/G RATIO 0.7 (0.7-1.9); ALBUMIN 3.2 G/DL (3.5-5.0); ALKALINE PHOSPHATASE 82 U/L (45-117); BUN (BLOOD UREA NITROGEN) 4 MG/DL (6-23); CALCIUM, SERUM 8.9 MG/DL (8.5-10.4); CHLORIDE, SERUM 107 MMOL/L (96-112); CO2 (CARBON DIOXIDE) 25 MMOL/L (24-34); CREATININE 0.74 MG/DL (0.70-1.30); GFR AFRICAN AMERICAN 136 ML/MIN (>=60); GFR NON AFRICAN AMERICAN 117 ML/MIN (>=60); GLOBULIN 4.7 G/DL (2.5-4.1); GLUCOSE, SERUM 106 MG/DL (60-99); POTASSIUM, SERUM 3.7 MMOL/L (3.5-5.3); SGOT(AST) 28 U/L (5-40); SGPT(ALT) 15 U/L (5-65); SODIUM, SERUM 143 MMOL/L (135-148); TOTAL BILIRUBIN 0.1 MG/DL (0-1.2); TOTAL PROTEIN 7.9 G/DL (6.0-8.5)
[2016-06-12 04:02] LABS: LACTATE 1.9 MMOL/L (0.3-2.4)
[2016-06-12] MEDS ORDERED: PR25 PO (04:26)
[2016-06-12] MEDS ORDERED: ENDOCET1 TA1 PO (04:26)
[2016-06-12] MEDS ORDERED: CAT1 PO (04:27)
[2016-06-12] MEDS ORDERED: PANCREATIN PO (04:30)
[2016-06-12] MEDS ORDERED: LIVER AID PO (04:31)
[2016-06-12] MEDS ORDERED: NORCO1 TA2 PO (07:12)
[2016-06-12] MEDS ORDERED: ACET500CAP PO (07:14)
[2016-06-12 13:42] LABS: HEPATITIS B SURFACE ANTIGEN NON-REACTIVE (NON-REACT)
[2016-06-12 14:10] LABS: HEPATITIS B CORE AB IGM NON-REACTIVE (NON-REAC); HEPATITIS C ANTIBODY NON-REACTIVE (NON-REACT)
[2016-06-12 14:12] LABS: HEP A ANTIBODY IGM NON-REACTIVE (NON-REACT)
[2016-06-13 05:44] LABS: HEMOGLOBIN 14.2 g/dL (13.6-17.8); MEAN CORPUS HGB CONC 33.6 g/dL (32.0-36.0); MEAN CORPUSCULAR HEMOGLOB 34.2 pg (26.0-34.0); MEAN CORPUSCULAR VOLUME 101.9 fL (80-100); MEAN PLATELET VOLUME 9.9 fL (9.2-13.0); PLATELET COUNT 242 10/3/uL (150-400); RED CELL COUNT 4.15 10/6/uL (4.7-6.1); WHITE BLOOD CELLS 8.2 10/3/uL (4.5-10.5)
[2016-06-13 05:45] LABS: HEMATOCRIT 42.3 % (40.0-51.0); MANUAL DIFF YES %
[2016-06-13 06:27] LABS: BAND NEUTROPHILS 1 %; EOSINOPHILS 1 %; EOSINOPHILS ABSOLUTE (CALC) 0.08 10/3/uL (0.0-0.53); LYMPHOCYTES 29 %; LYMPHOCYTES ABSOLUTE (CALC) 2.38 10/3/uL (0.67-4.30); MONOCYTES 1 %; MONOCYTES ABSOLUTE (CALC) 0.08 10/3/uL (0.21-1.20); NEUTROPHILS ABSOLUTE (CALC) 5.66 10/3/uL (2.02-8.40); SEGMENTED NEUTROPHIL (0) 68 %; TOTAL NUCLEATED CELLS 100
[2016-06-13 06:28] LABS: PLATELET ESTIMATE ADQ (ADEQUATE); RBC MORPHOLOGY NORM (NORMAL)
[2016-06-13 07:13] LABS: ALBUMIN 2.6 G/DL (3.5-5.0); BUN (BLOOD UREA NITROGEN) 3 MG/DL (6-23); CALCIUM, SERUM 8.9 MG/DL (8.5-10.4); GLUCOSE, SERUM 115 MG/DL (60-99); PHOSPHORUS, SERUM 3.2 MG/DL (2.5-4.5); POTASSIUM, SERUM 3.7 MMOL/L (3.5-5.3); SODIUM, SERUM 139 MMOL/L (135-148); TOTAL BILIRUBIN 0.2 MG/DL (0-1.2)
[2016-06-13 07:14] LABS: ALKALINE PHOSPHATASE 65 U/L (45-117); DIRECT BILIRUBIN < 0.1 MG/DL (0.0-0.4); INDIRECT BILIRUBIN(NOT ORDER) 0.1 MG/DL (0.1-0.9)
[2016-06-13 07:15] LABS: SGOT(AST) 22 U/L (5-40)
[2016-06-13 07:40] LABS: CHLORIDE, SERUM 103 MMOL/L (96-112); CO2 (CARBON DIOXIDE) 27 MMOL/L (24-34); CREATININE 0.69 MG/DL (0.70-1.30); GFR AFRICAN AMERICAN 140 ML/MIN (>=60); GFR NON AFRICAN AMERICAN 120 ML/MIN (>=60); SGPT(ALT) 14 U/L (5-65); TOTAL PROTEIN 6.4 G/DL (6.0-8.5)
[2016-06-13] MEDS ORDERED: L10 PO (11:25)
[2016-06-13] MEDS ORDERED: ATV1 PO (11:26)
[2016-06-13] MEDS ORDERED: HYDROCODONE PO (11:28)
[2016-06-13] MEDS ORDERED: HABIT14 TOP (11:28)
[2016-06-13] MEDS ORDERED: ZOFRAN4 PO (11:30)
[2016-06-13] MEDS ORDERED: CAT1 PO (11:30)
[2016-06-13] MEDS ORDERED: MULTIPLE VIT PO (11:37)
== END 2016-06-13 15:23 | disposition home or self-care (01) | DRG 440 ==
LOC: ER 03:04 → 1SO 06:22
PROVIDERS: Internal Medicine; Nurse Practitioner Acute Care
DX: K85.20 Alcohol induced acute pancreatitis without necrosis or infection (principal); I10 Essential (primary) hypertension; K86.0 Alcohol-induced chronic pancreatitis; Y90.6 Blood alcohol level of 120-199 mg/100 ml; E11.9 Type 2 diabetes mellitus without complications; F10.129 Alcohol abuse with intoxication, unspecified; F17.210 Nicotine dependence, cigarettes, uncomplicated; Z79.891 Long term (current) use of opiate analgesic; Z79.899 Other long term (current) drug therapy
CPT/HCPCS: 80048; 80053; 80074; 80076; 80305; 80307; 81001; 82150; 83605; 83690; 83735; 84100; 85025; 96374; 99285; A9270-GY; J1170; J2405; J2550; J3411

== ENCOUNTER 2016-07-01 19:56 | Emergency (ER) | payer SELFPAY ==
[~2016-07-01 19:56] MED LIST changes: +ACET500CAP PO; +ATV1 PO; +ENDOCET1 TA1 PO; +HABIT14 TOP; +HYDROCODONE PO; +L10 PO; +LIVER AID PO; +MULTIPLE VIT PO; +NORCO1 TA2 PO; +PANCREATIN PO; +PR25 PO; +ZOFRAN4 PO
[2016-07-01 20:00] LABS: BASOPHILS 0.2 %; BASOPHILS ABSOLUTE 0.02 10/3/uL (0.0-0.16); EOSINOPHILS 0.8 %; EOSINOPHILS ABSOLUTE 0.08 10/3/uL (0.0-0.53); ER CBC TAT 0 Hrs 05 Mins; IMMATURE GRANULOCYTES 0.2 %; IMMATURE GRANULOCYTES ABSOLUTE 0.02 10/3/uL (0.0-0.11); LYMPHOCYTES 18.2 %; LYMPHOCYTES ABSOLUTE 1.91 10/3/uL (0.67-4.30); MEAN CORPUS HGB CONC 35.2 g/dL (32.0-36.0); MEAN CORPUSCULAR HEMOGLOB 34.4 pg (26.0-34.0); MEAN PLATELET VOLUME 9.9 fL (9.2-13.0); MONOCYTES 10.1 %; MONOCYTES ABSOLUTE 1.06 10/3/uL (0.21-1.20); NEUTROPHILS 70.5 %; NEUTROPHILS ABSOLUTE 7.41 10/3/uL (2.02-8.40); PLATELET COUNT 274 10/3/uL (150-400); RBC DISTRIBUTION WIDTH 11.9 % (12.0-16.0); WHITE BLOOD CELLS 10.5 10/3/uL (4.5-10.5)
[2016-07-01 20:01] LABS: HEMATOCRIT 51.1 % (40.0-51.0); MANUAL DIFF NO %; MEAN CORPUSCULAR VOLUME 97.5 fL (80-100); RED CELL COUNT 5.24 10/6/uL (4.7-6.1)
[2016-07-01 20:15] LABS: A/G RATIO 0.7 (0.7-1.9); ALBUMIN 3.4 G/DL (3.5-5.0); ALKALINE PHOSPHATASE 102 U/L (45-117); BUN (BLOOD UREA NITROGEN) 4 MG/DL (6-23); CALCIUM, SERUM 9.5 MG/DL (8.5-10.4); CHLORIDE, SERUM 102 MMOL/L (96-112); CO2 (CARBON DIOXIDE) 28 MMOL/L (24-34); CREATININE 0.73 MG/DL (0.70-1.30); GFR AFRICAN AMERICAN 136 ML/MIN (>=60); GFR NON AFRICAN AMERICAN 118 ML/MIN (>=60); GLOBULIN 5.1 G/DL (2.5-4.1); GLUCOSE, SERUM 91 MG/DL (60-99); POTASSIUM, SERUM 4.7 MMOL/L (3.5-5.3); SGOT(AST) 30 U/L (5-40); SGPT(ALT) 17 U/L (5-65); SODIUM, SERUM 135 MMOL/L (135-148); TOTAL BILIRUBIN 0.7 MG/DL (0-1.2); TOTAL PROTEIN 8.5 G/DL (6.0-8.5)
[2016-07-01 20:52] LABS: WBC (NOT ORDERED) (RFLEX) 0 (0-5)
[2016-07-01 21:09] LABS: ASCORBIC ACID (UR NOT ORDER) NEG (NEG); BILIRUBIN, URINE NEGATIVE (NEG); KETONE, URINE 20 MG/DL (NEG); LEUKOCYTE ESTERASE(NOT OR NEG (NEG); NITRITE (URINE) NEG (NEG)
== END 2016-07-01 22:49 | disposition home or self-care (01) ==
LOC: ER 19:56
PROVIDERS: Emergency Medicine
DX: R10.11 Right upper quadrant pain (principal); E86.0 Dehydration; I10 Essential (primary) hypertension; F17.200 Nicotine dependence, unspecified, uncomplicated; Z79.899 Other long term (current) drug therapy
CPT/HCPCS: 74022; 80053; 81001; 83690; 85025; 96365; 96366; 96375; 99284; J2405; J3411